=== PATIENT | male | born 1935 | race Caucasian/White ===

== ENCOUNTER → 2016-09-03 | Outpatient (CLI) | payer MEDICARE | LOC: US 13:00 | DX: N28.1 Cyst of kidney, acquired (principal); N26.1 Atrophy of kidney (terminal) ==

== ENCOUNTER → 2021-08-31 | Outpatient (CLI) | payer MEDICARE | LOC: KOH-I 08-29 11:30 | DX: N28.1 Cyst of kidney, acquired (principal) | CPT/HCPCS: 76775 ==